=== PATIENT | male | born 1990 | race Caucasian/White ===

== ENCOUNTER 2024-06-10 12:09 | Emergency (ER) | payer OTHER, SELFPAY ==
--- NOTE | ~2024-06-10 | US_ITS ---
CLINICAL HISTORY: liver, new cirrhosis ? US abdomen limited Comparison: None Findings: Hepatic steatosis with focal fatty sparing at the gallbladder fossa. Smooth contour. There is no intrahepatic bile duct dilatation. Tubular structure in the region of the common bile duct measures 4 mm. The gallbladder is normal. There is no sonographic Saleh sign. The main portal vein is antegrade. No ascites. IMPRESSION: Hepatic steatosis. No evidence of cirrhosis. This document has been electronically signed by: Lisa Courtney MD on 06/10/2024 18:38:02
--- NOTE | ~2024-06-10 | XR_ITS ---
EXAMINATION: XR CHEST CLINICAL INFORMATION: hemoptysis COMPARISON: None available. TECHNIQUE: 2 views of the chest were obtained. FINDINGS: The cardiac, hilar, and mediastinal contours are normal. The lungs are clear bilaterally. There is no pneumothorax or pleural effusion. There is no focal osseous or soft tissue abnormality. XR/XR chest 2V IMPRESSION: Normal chest. Electronically signed by: Farhan Madrigal MD 06/10/2024 01:12 PM [facility]
--- NOTE | 2024-06-10 12:51 | ED.GENADULT ---
HPI - General Adult General Chief complaint: General Medical Stated complaint: coughing up blood Time Seen by Provider: 06/10/24 16:28 Source: patient Limitations: no limitations History of Present Illness ED Provider: Rupali Villasenor PA-C HPI narrative: 33-year-old male with a history of fatty liver disease presents with multiple complaints. Patient states he had an isolated episode of hemoptysis 1 month ago. Two weeks ago, he states he had an episode where he vomited bright red blood. 2-3 days ago, the patient noted bright red blood in his stool. Denies coffee-ground emesis, fever, rectal pain, abdominal pain, chest pain, shortness of breath. Related Data Allergies Allergy/AdvReac Type Severity Reaction Status Date / Time No Known Allergies Allergy Verified 06/10/24 12:55 Review of Systems Review of Systems: Yes all other systems are reviewed and are negative Constitutional: Constitutional: Denies fatigue and Denies fever(s) Cardiovascular: Cardiovascular: Denies chest pain and Denies dyspnea Respiratory: Respiratory: Denies chest congestion, Denies cough, Reports hemoptysis, Denies dyspnea and Denies wheezing Gastrointestinal: Gastrointestinal: Reports hematochezia, Denies coffee ground emesis, Denies nausea, Denies vomiting and Denies hematemesis Endocrine: Endocrine: Denies fatigue Allergic/Immunologic: Allergic/Immunologic: Denies wheezing PMF Past Medical History Attestation statement: The following information was validated with the patient. Social History Social History Advance Directives: No Advance Directives Information Provided: No Do you have a plan to hurt others: No Plan Physical Exam ED Vital Signs: Vital Signs - 24 hr 06/10/24 12:52 06/10/24 15:43 06/10/24 18:14 Temperature 97.5 F 97.4 F 98.4 F Pulse Rate 98 99 85 Respiratory Rate 18 18 16 Blood Pressure 155/64 H 144/97 H 145/95 H Pulse Oximetry 99 98 99 Oxygen Delivery Method Room Air Room Air Room Air BMI result Body Mass Index 30.1 Const Other: Alert well-appearing Orientation/consciousness: patient oriented x3 Resp Other: Lungs clear to auscultation Effort & Inspection: normal respiratory effort Cardio Other: Normal peripheral perfusion GI Other: Abdomen is soft, nontender nondistended no guarding Skin Other: Warm dry no rash Neuro General: patient oriented x3, gait normal, no focal motor deficits and CN's II-XI intact bilaterally Psych Other: Cooperative Course Course Course Narrative: This is a rapid medical exam performed by Flip Muniz NP: Additional HPI, ROS, PE not included below will be deferred to primary provider. Patient is a 33-year-old male presenting to the ED with complaint of coughing up blood this morning. Reports bloody mucous draining from nose for the past month. Two weeks ago woke with a spontaneous black eye. The night prior to that, had one episode of vomiting bright red blood. Reports semi-persistent non-productive cough. Two to three days ago had hematochezia. He is not anticoagulated, no known clotting disorders in the family. Split his lip a month ago, still has not healed. Night sweats last two weeks, no unintentional weight loss. Plan: labs, CXR Medical Decision Making Medical Decision Making MDM Narrative: 33-year-old male with a history of fatty liver disease presents with multiple complaints. Patient states he had an isolated episode of hemoptysis 1 month ago. Two weeks ago, he states he had an episode where he vomited bright red blood. 2-3 days ago, the patient noted bright red blood in his stool. Denies coffee-ground emesis, fever, rectal pain, abdominal pain, chest pain, shortness of breath. Problem: Fatty liver History: Per patient I have considered the following differential diagnoses: Upper GI bleed lower GI bleed, PE, TB, lung cancer, pneumonia Plan: The patient is here with 3 isolated issues of bleeding. Screening labs were obtained including a chest x-ray everything is normal. The only abnormality is a slight elevation in his bilirubin, which is likely from his known fatty liver. We will obtain an ultrasound of the right upper quadrant. In regard to his complaint of coughing up blood, we will add on a dimer. To note he has no objective signs symptoms for DVT on exam, he is not tachycardic, he is not short of breath and he is not hypoxic. The patient states he is here seeking assessment due to his 's request. Labs: No leukocytosis, not anemic, no electrolyte abnormality, bilirubin 2, other LFTs minimally elevated, dimer less than 150 Chest x-ray:FINDINGS: The cardiac, hilar, and mediastinal contours are normal. The lungs are clear bilaterally. There is no pneumothorax or pleural effusion. There is no focal osseous or soft tissue abnormality. XR/XR chest 2V IMPRESSION: Normal chest. US RUQ: Findings: Hepatic steatosis with focal fatty sparing at the gallbladder fossa. Smooth contour. There is no intrahepatic bile duct dilatation. Tubular structure in the region of the common bile duct measures 4 mm. The gallbladder is normal. There is no sonographic Saleh sign. The main portal vein is antegrade. No ascites. IMPRESSION: Hepatic steatosis. No evidence of cirrhosis. This document has been electronically signed by: Lisa Courtney MD on 06/10/2024 18:38:02 Lab Data 06/10/24 13:18 06/10/24 13:18 Labs: Lab Results 06/10/24 Range/Units 13:18 WBC 6.8 (4.8-10.8) X10*3/uL RBC 5.37 (4.60-5.80) X10*6/uL Hgb 16.3 (14.0-18.0) g/dl Hct 44.6 (42.0-52.0) % MCV 83.1 (80.0-98.0) fL MCH 30.4 (27.0-33.0) pg MCHC 36.5 H (31.0-36.0) g/dl RDW 11.9 (11.0-16.0) % Plt Count 210 (160-400) X10*3/uL MPV 9.8 (9.4-12.4) fL Immature Gran % (Auto) 0.4 (0.0-0.4) % Neut % (Auto) 61.8 (45-73) % Lymph % (Auto) 29.7 (20-40) % Mcculloch % (Auto) 6.0 (2-11) % Eos % (Auto) 1.2 (0-4) % Baso % (Auto) 0.9 (0-2) % Lymph # (Auto) 2.0 (1.2-4.9) X10*3/uL Mcculloch # (Auto) 0.4 (0.1-1.2) X10*3/uL Eos # (Auto) 0.1 (0.0-0.4) X10*3/uL Baso # (Auto) 0.1 (0.0-0.2) X10*3/uL Abs Immat Gran (auto) 0.03 (0.00-0.03) X10*3/uL Absolute Neuts (auto) 4.2 (2.0-8.3) x10*3/uL Absolute Nucleated RBC 0.000 (0.0-0.012) X10*3/uL Nucleated RBC % (auto) 0.0 (0.0-0.2) /100WBC PT 11.1 (10.9-12.4) SEC INR 1.0 (0.9-1.1) APTT 30.3 (26.0-36.8) SEC D-Dimer High Sensitivty < 150 NG/ML Sodium 140 (135-145) mmol/L Potassium 3.8 (3.3-5.1) mmol/L Chloride 106 (96-108) mmol/L Carbon Dioxide 24 (22-29) mmol/L Anion Gap 14 (12-20) BUN 17 H (9-16) mg/dL Creatinine 1.27 (0.5-1.4) mg/dL Estim Creat Clear Calc 116.5 Estimated GFR > 60 Random Glucose 216 H (60-115) mg/dL Calcium 9.5 (8.4-10.2) mg/dL Total Bilirubin 2.0 H (0.0-1.0) mg/dL Direct Bilirubin 0.4 (0.0-0.5) mg/dL AST 39 H (5-37) U/L ALT 93 H (0-40) U/L Alkaline Phosphatase 51 (39-117) U/L Total Protein 8.1 H (6.5-8.0) g/dL Albumin 4.7 (3.5-5.0) g/dL Discharge Plan Discharge Clinical Impression: Cough Patient Disposition: Home, Self-Care Instructions: Diet for Stomach Ulcers and Gastritis (ED), Gastroesophageal Reflux Disease (ED), Chronic Cough (ED) Additional Instructions: All of your screening labs were normal, you did have some elevation in your liver function tests, which I attribute to your fatty liver disease. You had an ultrasound of the liver and associated structures, there were no acute findings. The chest x-ray was clear. Your viral panel was negative. In regard to the upper and lower GI bleeding you have had, you require endoscopy and colonoscopy as an outpatient. You need to establish primary care, so that you can have a referral to a electronics instructor. Interventions: ED Discharge Assessment Last Done: 06/10/24 19:40 Discharge Date/Time: 06/10/24 19:40 Print Language: Montserratian
[2024-06-10 12:52] VITALS: BP 155/64; PULSE 98; RESP 18; TEMP 36.4; O2SAT 99; BMI 30.1
[2024-06-10 13:27] LABS: Basophils Absolute Auto 0.1 X10*3/uL (0.0-0.2); Basophils Percent Auto 0.9 % (0-2); Eosinophils Absolute Auto 0.1 X10*3/uL (0.0-0.4); Eosinophils Percent Auto 1.2 % (0-4); Hematocrit 44.6 % (42.0-52.0); Hemoglobin 16.3 g/dl (14.0-18.0); Imm Gran Abs Auto 0.03 X10*3/uL (0.00-0.03); Imm Gran Pct Auto 0.4 % (0.0-0.4); Lymphocytes Percent Auto 29.7 % (20-40); MANUAL DIFF FLAG NO; Mean Corpuscular HGB Conc 36.5 g/dl (31.0-36.0); Mean Corpuscular Hemoglobin 30.4 pg (27.0-33.0); Mean Corpuscular Volume 83.1 fL (80.0-98.0); Mean Platelet Volume 9.8 fL (9.4-12.4); Monocytes Absolute Auto 0.4 X10*3/uL (0.1-1.2); Neutrophils Absolute Auto 4.2 x10*3/uL (2.0-8.3); Neutrophils Percent Auto 61.8 % (45-73); Platelet Count 210 X10*3/uL (160-400); Red Blood Count 5.37 X10*6/uL (4.60-5.80); Red Cell Distribution Width 11.9 % (11.0-16.0); White Blood Count 6.8 X10*3/uL (4.8-10.8)
[2024-06-10 13:33] LABS: Prothrombin Time 11.1 SEC (10.9-12.4)
[2024-06-10 13:35] LABS: Partial Thromboplastin Time 30.3 SEC (26.0-36.8)
[2024-06-10 13:53] LABS: Alanine Aminotransferase 93 U/L (0-40); Albumin Level 4.7 g/dL (3.5-5.0); Alkaline Phosphatase 51 U/L (39-117); Anion Gap 14 (12-20); Aspartate Amino Transferase 39 U/L (5-37); Blood Urea Nitrogen 17 mg/dL (9-16); Calcium 9.5 mg/dL (8.4-10.2); Carbon Dioxide 24 mmol/L (22-29); Chloride 106 mmol/L (96-108); Creatinine Clr Calc Pharmacy 116.5; Estimated Glomerular Filt Rate > 60; Glucose Random 216 mg/dL (60-115); Potassium 3.8 mmol/L (3.3-5.1); Sodium 140 mmol/L (135-145); Total Protein 8.1 g/dL (6.5-8.0)
[2024-06-10 15:43] VITALS: BP 144/97; PULSE 99; RESP 18; TEMP 36.3; O2SAT 98
[2024-06-10 16:58] LABS: D Dimer High Sensitivity < 150 NG/ML
[2024-06-10 17:22] LABS: Bilirubin Direct 0.4 mg/dL (0.0-0.5)
[2024-06-10 18:14] VITALS: BP 145/95; PULSE 85; RESP 16; TEMP 36.9; O2SAT 99
[2024-06-10 19:40] VITALS: BP 145/95; PULSE 85; RESP 16; TEMP 36.9; O2SAT 99
--- OUTSIDE RECORDS SUMMARY | 2024-06-10 19:47 | XMS_ITS | Continuity of Care Document ---
Author Name [facility] Organization [facility] Care Team Providers Care Linux Network Systems Administrator Name Role Phone [facility] Unavailable Unavailable Problems Combined list of problems from Department of Defense and Veterans Affairs facilities. It does not include entries that were removed or entered in error. Problem Status Onset Date Problem Type Date of Resolution Comments Source Need For Vaccination Against Influenza Inactive 01/29/2013 Condition DoD Ganglion, right wrist Active Condition DoD Low back pain, unspecified Active Condition DoD Patient Education - Injury Prevention Active Condition DoD visit for: ears / hearing exam Active Condition DoD Need For Prophylactic Measure Inactive Condition DoD Laboratory Studies Inactive Condition Do D visit for: routine eye exam Inactive Condition DoD visit for: services physical Inactive Condition DoD Allergies, Adverse Reactions, Alerts Combined list of allergies from Department of Defense and Veterans Affairs facilities. It does not include entries that were removed or entered in error. Substance Category Reaction Severity Reaction type Status Date Reported Comments Source No Known Allergies Drug allergy (disorder) active 06/28/2021 [facility] [place] Immunizations Combined list of available immunizations from the Department of Defense and Veterans Affairs facilities. Immunization Series Date Given Administered By Site Reaction Lot Number CVX Code Drug Sales Floor Team Member Status Comments Source influenza, injectable, quadrivalent- pf 2021 zzLef t Arm [id number] 150 Unknown complet ed influenza , injectabl e, quadrival ent-pf 06/28/21 Given Ambulat ory Pharmac y influenza, injectable, quadrivalent 2021 [id number] GlaxoSmithKli ne complet ed influenza , injectabl e, quadrival ent 06/28/21 Given Ambulat ory Pharmac y influenza, injectable, quadrivalent, contains preservative 1 2021 [id number] 158 SmithKline (SKB) complet ed influenza , injectabl e, quadrival ent, contains preservat lesia DoD Influenza, injectable, quadrivalent, preservative free 1 2021 GE SEVERINO [id number] 150 Other (OTH) complet ed Influenza , injectabl e, quadrival ent, preservat lesia free DoD SARS-CoV-2 (COVID-19) Ad26 vaccine, rec [id number] complet ed SARS-CoV- 2 (COVID-19 ) Ad26 vaccine, rec 08/18/20 Given Ambulat ory Pharmac y SARS-COV-2 (COVID-19) vaccine, vector non-replicati ng, recombinant spike protein-Ad26, preservative free, 0.5 mL 1 [id number] [address] [facility] (JSN) comple t ed SARS-COV- 2 (COVID-19 ) vaccine, vector non-repli cating, recombina nt spike protein-A d26, preservat lesia free, 0.5 mL DoD influenza, injectable, quadrivalent- pf 2019 [id number] 150 Seqirus complet ed influenza , injectabl e, quadrival ent-pf 03/16/20 Given Ambulat ory Pharmac y Influenza, injectable, quadrivalent, preservative free 1 2019 [id number] 150 Seqirus (SEQ) complet ed Influenza , injectabl e, quadrival ent, preservat lesia free DoD influenza, seasonal, injectable 2017 [id number] 141 Seqirus complet ed influenza , seasonal, injectabl e 03/17/18 Given Ambulat ory Pharmac y Influenza, seasonal, injectable 1 2017 [id number] 141 Seqirus (SEQ) comple t ed Influenza , seasonal, injectabl e DoD influenza, injectable, quadrivalent- pf 2017 [id number] 150 Seqirus complet ed influenza , injectabl e, quadrival ent-pf 03/16/18 Given Ambulat ory Pharmac y Influenza, injectable, quadrivalent, preservative free 1 2017 [id number] 150 Seqirus (SEQ) comple t ed Influenza , injectabl e, quadrival ent, preservat lesia free DoD influenza, injectable, quadrivalent- pf 2016 [id number] [address] GlaxoSmithKli ct complet ed influenza , injectabl e, quadrival ent-pf 01/27/17 Given Ambulat ory Pharmac y Influenza, injectable, quadrivalent, preservative free 1 2016 [id number] 150 SmithClyde (SKB) complet ed Influenza , injectabl e, quadrival ent, preservat lesia free DoD anthrax vaccine 2016 [id number] Emergent Biosolutions complet ed anthrax vaccine 05/07/16 Given Ambulat ory Pharmac y anthrax vaccine 2 2016 [id number] [facility] [place] ([facility] complet ed anthrax vaccine DoD influenza, seasonal, injectable 2015 [id number] 141 Seqirus complet ed influenza , seasonal, injectabl e 03/28/16 Given Ambulat ory Pharmac y Influenza, seasonal, injectable 1 2015 [id number] 141 Seqirus (SEQ) comple t ed Influenza , seasonal, injectabl e DoD influenza, injectable, quadrivalent 2015 [id number] 158 Seqirus complet ed influenza , injectabl e, quadrival ent 03/27/16 Given Ambulat ory Pharmac y influenza, injectable, quadrivalent, contains preservative 1 2015 [id number] 158 Seqirus (SEQ) comple t ed influenza , injectabl e, quadrival ent, contains preservat lesia DoD typhoid Vi capsular polysaccharid e vac 2015 [id number] sanofi pasteur complet ed typhoid Vi capsular polysacch aride vac 07/01/15 Given Ambulat ory Pharmac y anthrax vaccine 2015 [id number] Emergent Biosolutions complet ed anthrax vaccine 07/01/15 Given Ambulat ory Pharmac y vaccinia (smallpox) vaccine 2015 [id number] 75 Sanofi Pasteur Incorporated complet ed vaccinia (smallpox ) vaccine 07/01/15 Given Ambulat ory Pharmac y anthrax vaccine 1 2015 [id number] [employer]gent [employer] [place] (MIP) complet ed anthrax vaccine DoD vaccinia (smallpox) vaccine 1 2015 [id number] 75 (MANUELA) complet ed vaccinia (smallpox ) vaccine DoD typhoid Vi capsular polysaccharid e vaccine 1 2015 [id number] 101 Sanofi Pasteur (PMC) complet ed typhoid Vi capsular polysacch aride vaccine DoD influenza, seasonal, injectable-pf 2014 [id number] 140 CSL Behring complet ed influenza , seasonal, injectabl e-pf 03/06/15 Given Ambulat ory Pharmac y Influenza, seasonal, injectable, preservative free 1 2014 [id number] 140 CSL Bi[employer]. (CSL) complet ed Influenza , seasonal, injectabl e, preservat lesia free DoD influenza, seasonal, injectable-pf 2013 [id number] 140 CSL Behring complet ed influenza , seasonal, injectabl e-pf 03/05/14 Given Ambulat ory Pharmac y hepatitis B adult vaccine 2013 [id number] 43 GlaxoSmithKli ne complet ed hepatitis B adult vaccine 03/05/14 Given Ambulat ory Pharmac y hepatitis B vaccine, adult dosage 3 2013 [id number] 43 SmithKline (SKB) complet ed hepatitis B vaccine, adult dosage DoD Influenza, seasonal, injectable, preservative free 1 2013 [id number] 140 [facility] [employer] (CS) complet ed Influenza , seasonal, injectabl e, preservat lesia free DoD hepatitis A adult vaccine 2013 [id number] 52 GlaxoSmithKli ne complet ed hepatitis A adult vaccine 05/19/13 Given Ambulat ory Pharmac y hepatitis B adult vaccine 2013 [id number] 43 GlaxoSmithKli ne complet ed hepatitis B adult vaccine 05/19/13 Given Ambulat ory Pharmac y hepatitis B vaccine, adult dosage 2 2013 [id number] 43 SmithKline (SKB) complet ed hepatitis B vaccine, adult dosage DoD hepatitis A vaccine, adult dosage 3 2013 [id number] 52 SmithKline (SKB) complet ed hepatitis A vaccine, adult dosage DoD influenza, seasonal, injectable 2012 [id number] 141 sanofi pasteur complet ed influenza , seasonal, injectabl e 01/22/13 Given Ambulat ory Pharmac y Influenza, seasonal, injectable 1 2012 [id number] 141 Sanofi Pasteur (PMC) complet ed Influenza , seasonal, injectabl e DoD hepatitis A-hepatitis B vaccine 2012 [id number] [id number] 104 GlaxoSmithKli ne complet ed hepatitis A-hepatit is B vaccine 11/13/12 Given Ambulat ory Pharmac y meningococcal A,C,Y,W-135 (MCV4P) 2012 [id number] 114 sanofi pasteur complet ed meningoco ccal A,C,Y,W-1 35 (MCV4P) 11/13/12 Given Ambulat ory Pharmac y poliovirus vaccine, inactivated 2012 [id number] 10 sanofi pasteur complet ed polioviru s vaccine, inactivat ed 11/13/12 Given Ambulat ory Pharmac y poliovirus vaccine, inactivated 1 2012 [id number] 10 Sanofi Pasteur (PMC) complet ed polioviru s vaccine, inactivat ed DoD hepatitis A and hepatitis B vaccine 2 2012 [id number] [id number] 104 SmithKline (SKB) complet ed hepatitis A and hepatitis B vaccine DoD meningococcal polysaccharid e (groups A, C, Y and W-135) diphtheria toxoid conjugate vaccine (MCV4P) 1 2012 [id number] 114 Sanofi Pasteur (PMC) complet ed meningoco ccal polysacch aride (groups A, C, Y and W-135) diphtheri a toxoid conjugate vaccine (MCV4P) DoD measles, mumps and rubella virus vaccine 1 2012 UNK 03 Unknown (UNK) Not Given measles, mumps and rubella virus vaccine DoD varicella virus vaccine 1 2012 UNK 21 Unknown (UNK) Not Given varicella virus vaccine DoD influenza, seasonal, injectable 2011 [id number] 141 GlaxoSmithKli ne complet ed influenza , seasonal, injectabl e 01/16/12 Given Ambulat ory Pharmac y hepatitis A adult vaccine 2011 [id number] 4AA 52 GlaxoSmithKli ne complet ed hepatitis A adult vaccine 01/16/12 Given Ambulat ory Pharmac y tetanus, diphtheria, acellular pertu is 2011 [id number] 115 GlaxoSmithKli ne complet ed tetanus, diphtheri a, acellular pertussis 01/16/12 Given Ambulat ory Pharmac y hepatitis A vaccine, adult dosage 1 2011 [id number] 4AA 52 SmithKline (SKB) complet ed hepatitis A vaccine, adult dosage DoD tetanus toxoid, reduced diphtheria toxoid, and acellular pertu is vaccine, adsorbed 1 2011 [id number] 115 SmithKline (SKB) complet ed tetanus toxoid, reduced diphtheri a toxoid, and acellular pertussis vaccine, adsorbed DoD Influenza, seasonal, injectable 1 2011 [id number] [id number] 141 SmithKline (SKB) complet ed Influenza , seasonal, injectabl e DoD Encounters Combined list of: 1) Encounters from Department of Veterans Affairs facilities going backup to the last 18 months, not all VA inpatient encounters are included; 2) Encounters from the Department of Defense facilities going backup to 280 months. Location Location Details Encounter Type Encounter Number Reason For Visit Attending Provider ADM Date DC Date Status Disposition Source [facility] [place]([facility] OUTPATIENT [id number] Notes Entered by: ANA MARIA ANAYA 13 Nov 2012 0956 ------- ------- ------- ------- -- pha/sat /twin/m gc/bri o/visio n LISA LEE 11/13 Released w/o Limitations [facility] [place]([facility]) [facility] [place](IEP Hearing Conservat ion Exam) OUTPATIENT [id number] Notes Entered by: JUNI FRENCH 13 Nov 2012 1700 ------- ------- ------- ------- -- EAR PLUG ISSUE ZAIRE FRENCH 11/13 Released w/o Limitations [facility] [place]([facility] Hearing Conserv ation Exam) [facility] [place] [place] [facility] OUTPATIENT [id number] Notes Entered by: RADHA CHRISTIANSEN 22 Jan 2013 1110 ------- ------- ------- ------- -- ASHLEY ASHLEY 01/22 Released w/o Limitations [facility] [place] Initial [place]) [facility] [place] OUTPATIENT [id number] Notes Entered by: James BUSH 28 Jun 2021 0935 ------- ------- ------- ------- -- RODNEY MOSQUEDA 06/28 Released w/o Limitations [facility] [place]([facility]) [facility] [place] OUTPATIENT [id number] Notes Entered by: TORRES PAPPAS 28 Jun 2021 1017 ------- ------- ------- ------- -- CASSI JACKSON 06/28 Released w/o Limitations [facility] [place]([facility] ) [facility] [place]([facility]) OUTPATIENT [id number] BOBBI HURLEY 06/30 Released w/o Limitations [facility] [place]([facility]) Procedures Combined list of: 1) Procedures from Department of Veterans Affairs facilities going back up to thelast 18 months, not all VA non-surgical procedures are included; 2) All procedures from the Department of Defense facilities. Procedure Procedure Type Code Date Perfomer Comments Sourc e No data available for this section [facility] ADMINISTRATION OF PATIENT-FOCUSED HEALTH RISK ASSESSMENT INSTRUMENT (EG, HEALTH HAZARD APPRAISAL) WITH SCORING AND DOCUMENTATION, PER STANDARDIZED INSTRUMENT [facility] PURE TONE AUDIOMETRY (THRESHOLD), AUTOMATED; AIR ONLY [facility] INFLUENZA VIRUS VACCINE, QUADRIVALENT (IIV4), SPLIT VIRUS, PRESERVATIVE FREE, 0.5 ML DOSAGE, FOR INTRAMUSCULAR USE [facility] INFLUENZA VIRUS VACCINE, TRIVALENT (IIV3), SPLIT VIRUS, 0.5 ML DOSAGE, FOR INTRAMUSCULAR USE [facility] ANTIBODY; HIV-1 AND HIV-2, SINGLE RESULT [facility] Influenza Split Virus Vaccine 0.5mL Dosage Intramuscular ASHLEY SUMMERS Physician Supervised Injection Intramuscular Physician Supervised Injection Intramuscular [id number] ASHLEY SUMMERS Immunization Administration By Injection, One Vaccine Immunization Administration By Injection, One Vaccine 65206 ASHLEY SUMMERS Serum Viral Antibody HIV-1 And HIV-2 (Single Result) Serum Viral Antibody HIV-1 And HIV-2 (Single Result) 97007 LISA LEE [facility] Meningococcal (A, C, Y, W-135) Oligosacch Diphtheria Toxoid Conj Vacc LISA LEE [facility] Vaccines Viral Polio, Inactivated Vaccines Viral Polio, Inactivated 45992 LISA LEE [facility] Hepatitis A And Hepatitis B (Intramuscular Use) Adult Dosage Hepatitis A And Hepatitis B (Intramuscular Use) Adult Dosage 27639 LISA LEE Immunization Administration By Injection, One Vaccine Immunization Administration By Injection, One Vaccine 66246 LISA LEE [facility] Venipuncture Venipuncture 23500 LISA LEE [facility] Screening Test Of Visual Acuity, Quantitative, Bilateral Screening Test Of Visual Acuity, Quantitative, Bilateral 91556 LISA LEE [facility] Health Maint. Unlisted Preventive Medicine Service Health Maint. Unlisted Preventive Medicine Service 91147 LISA LEE [facility] Threshold Audiogram (Pure Tone) Automated Threshold Audiogram (Pure Tone) Automated [id number] CASSI SANABRIA [facility] Preventive Medicine Administration Of Health Risk Questionnaire Patient-Focused Preventive Medicine Administration Of Health Risk Questionnaire Patient-Focused 45485 RODNEY BROWN [facility] Psychometric Emotional / Behavioral A e ment Psychometric Emotional / Behavioral Assessment 79135 RODNEY BROWN [facility] Immunization Administration By Injection, One Vaccine Immunization Administration By Injection, One Vaccine 61020 RODNEY BROWN [facility] Influenza Split Virus Vaccine IM Preserv Free 0.5mL Dosage Quadrivalent Influenza Split Virus Vaccine IM Preserv Free 0.5mL Dosage Quadrivalent 89511 RODNEY BROWN Influenza, Inj., quad., preservative free (FluLaval); Series #: 1; 0.5 mL; IM; Left Arm; Mfg: Other; Lot: [id number]; VIS given (Siddhartha: 11/19/2020). DoD Social History Combined list of available smoking, tobacco, and other social history from Department of Defense and Veterans Affairs facilities. Social History Type Response Date Comment Sour e This section is an empty social history section. [facility] Assessment and Plan Combined list of future care activities from Department of Defense and Veterans Affairs facilities (e.g., assessment and plan notes, appointments, orders, and referrals). Additional future care activities may be listed in the Plan of Care section. Result Assessment and Plan Date Source Assessment and Plan No data available for this section 06/11/2024 Ambulatory Pharmacy Functional Status Combined list of recent functional and cognitive assessments recorded at Department of Defense and Veterans Affairs (VA).VA Functional Chandler Measurement (FIM) Scale: 1 = Total Assistance (Subject = 0% +), 2 = Maximal Assistance (Subject = 25% +), 3 = Moderate Assistance (Subject = 50% +), 4 = Minimal Assistance (Subject = 75% +), 5 = Supervision, 6 = Modified Chandler (Device), 7 = Complete Chandler (Timely, Safely). Assessment Date/Time Source Assessment Type Assessment Skill Assessment Score Assessment Details No data available for this section
== END 2024-06-10 19:40 | disposition home or self-care (01) ==
PROVIDERS: Physician Assistant Medical; Registered Nurse Emergency; Emergency Provider Emergency Medicine
DX: R04.2 Hemoptysis (principal); R10.11 Right upper quadrant pain; R05.9 Cough, unspecified; Z79.899 Other long term (current) drug therapy
CPT/HCPCS: 36415; 71046; 76705; 80053; 82248; 85025; 85379; 85610; 85730; 99283; 99284

== ENCOUNTER → 2024-06-10 12:55 | Outpatient (BNV) | payer SELFPAY | PROVIDERS: Visit Provider Radiology Diagnostic Radiology | DX: R04.2 Hemoptysis (principal) | CPT/HCPCS: 71046; 76705 ==

== ENCOUNTER 2024-10-06 22:15 | Emergency (ER) | payer OTHER, SELFPAY ==
[2024-10-06 22:27] VITALS: BP 121/82; PULSE 86; RESP 18; TEMP 36.9; O2SAT 97; BMI 29.6
[2024-10-07 00:03] VITALS: BP 127/81; PULSE 74; TEMP 36.8; O2SAT 99
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
[2024-10-07] MEDS: Diphth,Pertus(ACell),Tet Adult 0.5 ML SYRINGE IM (01:29)
[2024-10-07] MEDS: Lidocaine HCl 1 % 20 ML VIAL 10 ML INFILTRATI (01:30)
[2024-10-07 02:05] VITALS: BP 120/85; PULSE 71; TEMP 36.9; O2SAT 97
[2024-10-07 02:28] VITALS: BP 120/85; PULSE 71; RESP 17; TEMP 36.9; O2SAT 97
== END 2024-10-07 02:28 | disposition home or self-care (01) ==
PROVIDERS: Emergency Provider Emergency Medicine
DX: S81.812A Laceration without foreign body, left lower leg, initial encounter (principal); W26.8XXA Contact with other sharp object(s), not elsewhere classified, initial encounter; Y93.9 Activity, unspecified; Y92.9 Unspecified place or not applicable; Y99.9 Unspecified external cause status; Z23 Encounter for immunization
CPT/HCPCS: 12002; 90471; 90715; 99283; 99284; J2003

== ENCOUNTER 2025-03-25 11:39 | Outpatient (AMB) | payer OTHER, SELFPAY ==
--- NOTE | 2025-03-25 11:42 | AM.OFFWIN_ITS ---
Intake Vital Signs 03/25/25 11:45 Height 6 ft 5 in BP 140/88 H Blood Pressure Location Lt brachial Position Sitting Pulse 107 H Pulse Source Pulse Oximeter Temp 98.4 F Temp Source Oral Pulse Oximetry (%) 99 Oxygen Delivery Method Room Air Intake Visit Reasons: ep blurred vision high BP headaches dizziness Intake Note: pt presents with High BP, dizziness, headaches and blurred vision, nausea- vomited 4 days ago. Chest becomes tight with eating, yellow colored eyes 2 wks ago lasting 1.5 days. alcohol intake - 2 whiskey drinks over the last month. BP last night 159/103 Allergies poison felecia extract Allergy (Severe, Verified 03/25/25 11:49) swelling, blistering Do you need a note to return to daycare/school/sports/work: No HPI HPI Comments History of Present Illness Details History of Present Illness - The patient is a 34 year old male pres enting with elevated blood pressure, headache, blurred vision, and chest pain. - He reports recent high blood pressure readings at home in the range of high 150s to low 160s over 100s, with a reading of 157/103 mmHg last night. - For the past couple of weeks, he has e xperienced intermittent, sharp headaches on the right hinduism, lasting 5-10 minutes each, which have caused nausea on 2-3 occasions. - He also reports bilateral chest pain, which is higher on the right side and lower and more lateral on the left. - Bilateral blurred vision started yeste rday around lunchtime and has been constant in both eyes. - Although he notes poor baseline vision in his right eye, both eyes are currently blurry. - Pertinent history includes an ER visit about six months ago for abdominal pain and hemoptysis, where he also had high blood pressure that subsequently resolved. - He also had an episode of yellow eyes after Thanksiving following an episode of emesis that contained bright red blood. - He also reports intermittent nosebleed s over the last few months. - The patient uses tobacco-free nicotine pouches and denies smoking or vaping. - He typically drinks two whiskeys at [facility] but started a month-long break from alcohol the week before Thanksgiving. - He is not on any medications and does not have a primary care provider. - He denies fevers, chills, and congesti on. - He denies melena or hematochezia but h as had hematemesis. - He has some dizziness and light headed ness as well. Physical Exam General: Cooperative, healthy appearing, comfortable, no acute distress and well developed Orientation: Patient oriented x3 Limitations: No limitations Head: Normal to inspection Ears: Hearing grossly normal bilaterally Nose: Normal external nose present, but reports of nosebleeds Face and sinus: Normal facial exam Eyes: PERRLA, EOMI. Red reflex is noted. No nystagmus noted, no icterus noted. Neck: Normal visual inspection and Yes full ROM. No carotid bruits noted. Respiratory: Normal respiratory effort and able to speak in complete sentences. Clear to auscultation bilaterally. No w/r/r noted. Cardiovascular: Regular rate and rhythm. Normal S1 and S2. No m/r/g noted. GI: Normal to inspection. Soft to palpation and nontender, non-distended. No guarding or rebound tenderness noted. Skin: No rashes or lesions noted. No jaundice noted Neuro: Patient oriented x3 .CN II-XII intact. Extremities: Normal to inspection. No edema noted. Patient was informed and verbally consented to the use of an ambient scribe for clinic note documentation during this visit. Review of Systems Const All systems reviewed & are unremarkable except as noted in HPI and below Physical Exam Vital Signs: Last Vital Signs Temp 98.4 F 03/25/25 11:45 Pulse 107 H 03/25/25 11:45 BP 140/88 H 03/25/25 11:45 Pulse Ox 99 03/25/25 11:45 Oxygen Delivery Method Room Air 03/25/25 11:45 Assessment & Plan Assessment & Plan (1) Headache: Code(s): R51.9 - Headache, unspecified Qualifiers: Headache chronicity pattern: acute headache Headache type: unspecified Intractability: intractable Qualified Code(s): R51.9 - Headache, unspecified (2) High blood pressure: Code(s): I10 - Essential (primary) hypertension Qualifiers: Hypertension type: primary hypertension Qualified Code(s): I10 - Essential (primary) hypertension (3) Blurry vision, bilateral: Code(s): H53.8 - Other visual disturbances Plan Most likely new diagnosis of HTN, uncontrolled with concern for the new onset of BARBOSA and blurry vision plan - pt will need a work up in the ER - will call in an expect to [facility] - vitals are stable here in the clinic - will call an ambulance due to the blurred vision - will make an appt for new pt visit - needs f/u after the ER visit - pt is agreeable to the plan Coding Level of Care Code Est Pt Level 3 (18831) Diagnoses Acute intractable headache, unspecified headache type R51.9 Headache chronicity pattern: acute headache Headache type: unspecified Intractability: intractable Primary hypertension I10 Hypertension type: primary hypertension Blurry vision, bilateral H53.8
[2025-03-25 11:45] VITALS: BP 140/88; PULSE 107; TEMP 36.9; O2SAT 99
== END 2025-03-25 13:29 | disposition home or self-care (01) ==
PROVIDERS: Visit Provider Physician Assistant Medical
DX: R51.9 Headache, unspecified (principal); I10 Essential (primary) hypertension; H53.8 Other visual disturbances

== ENCOUNTER 2025-03-25 12:51 | Emergency (ER) | payer OTHER, SELFPAY ==
[2025-03-25 12:54] VITALS: BP 147/104; PULSE 105; O2SAT 98
[2025-03-25 13:07] VITALS: BP 164/104; PULSE 105; RESP 20; TEMP 37.3; O2SAT 96; BMI 30.2
--- NOTE | 2025-03-25 14:15 | ED_ITS ---
HPI - General Adult General Chief complaint: General Medical Stated complaint: BLURRED VISION X24H,R SIDED HABP 181/105 PER EMS Time Seen by Provider: 03/25/25 13:06 Source: patient Mode of arrival: ambulatory Limitations: no limitations History of Present Illness ED Provider: HPI narrative: 34-year-old male, currently serving in the [employer], reports to be healthy, annual physical but you states during his last physical his blood pressure was elevated 140s systolic, has been noting in his blood pressure has been elevated, he reported nonspecific blurry vision for the past few days associated with high blood pressures, stabbing sharp headaches, prefrontal headaches, no sudden onset of worse headaches associated nausea vomiting weakness in upper or lower extremities, reports episodes of dizziness when standing up and moving fast. Nonsmoker nondrinker no drug use. Related Data Previous Rx's ?Medication ?Instructions ?Recorded hydrochlorothiazide 12.5 mg capsule 12.5 mg PO DAILY 6 0 days #60 caps 03/25/25 Allergies Allergy/AdvReac Type Severity Reaction Status Date / Time poison felecia extract Allergy Severe swelling, Verified 03/25/25 13:10 blistering Review of Systems Constitutional: Constitutional: Reports as per HPI [facility] Social History Social History Unable to assess alcohol history related to: Unknown Use of substances other than those prescribed or required for medical reasons: Unknown Advance Directives: No Advance Directives Information Provided: Yes Physical Exam ED Exam Exam: ?General: ??looks age appropriate ?PERRLA, EOMI, MMM, Neck: Supple, no LAD ?CV: RRR, no obvious murmurs appreciated ?Resp: ?No wheezing rales rhonchi no stridor moving air well Abd: ?Bowel sounds are present, no tenderness no rebound no rigidity MSK: FROM, strength 5/5 all extremities Skin: Warm, dry, intact, ?Neuro: ?Alert and oriented x3, moving upper and lower extremities symmetrically, no obvious facial asymmetry noted, cranial nerves 2-12 intact, no dysmetria upper or lower extremities no nystagmus horizontal or vertical Vital Signs: Vital Signs - 24 hr 03/25/25 13:07 Temperature 99.1 F Pulse Rate 105 H Respiratory Rate 20 Blood Pressure 164/104 H Pulse Oximetry 96 Oxygen Delivery Method Room Air BMI result Body Mass Index 30.2 Medical Decision Making Medical Decision Making [facility] Narrative: 2:36 PM 03/25/2025 (Dr. Santos Street): ECG without changes to suspect underlying ACS, his neurologic deficits, no evidence for cerebellar stroke or nystagmus No neurologic deficits to suspect a stroke We will check blood work to evaluate for any cardiac ischemia Cardiac enzymes, blood work for end-organ damage such as RYAN Differential Diagnosis Differential Diagnoses: The differential diagnosis associated with the presentation includes (Asymptomatic hypotension, ACS, stroke, TIA, tension headache, subarachnoid hemorrhage) Admission/Observation Consideration of admission/observation: Escalation of care including admission/observation considered Lab Data MDM Lab Attestation statement: I reviewed the patient's lab results. Independent Interpretation I performed an independent interpretation of an: EKG (102 beats per minute otherwise normal ECG without dysrhythmia, AV kim blocks or ST-T changes to suspect underlying ACS, my independent interpretation) Tests considered The following testing was considered but not selected: CT brain Chronic Conditions Patient?s care impacted by: Hypertension Discharge Plan Discharge Clinical Impression: Hypertension Qualifiers: Hypertension type: primary hypertension Qualified Code(s): I10 - Essential (primary) hypertension Prescriptions: New hydrochlorothiazide 12.5 mg capsule 12.5 mg PO DAILY 60 Days Qty: 60 0RF Print Language: Sri L[place]an
[2025-03-25 14:29] LABS: MANUAL DIFF FLAG NO
[2025-03-25 14:32] LABS: Hematocrit 44.0 % (42.0-52.0); Hemoglobin 16.3 g/dl (14.0-18.0); Imm Gran Abs Auto 0.03 X10*3/uL (0.00-0.03); Imm Gran Pct Auto 0.5 % (0.0-0.4); Lymphocytes Absolute Auto 1.7 X10*3/uL (1.2-4.9); Mean Corpuscular HGB Conc 37.0 g/dl (31.0-36.0); Mean Corpuscular Hemoglobin 30.2 pg (27.0-33.0); Mean Corpuscular Volume 81.6 fL (80.0-98.0); NRBC Abs Auto 0.000 X10*3/uL (0.0-0.012); NRBC Pct Auto 0.0 /100WBC (0.0-0.2); Platelet Count 223 X10*3/uL (160-400); Red Blood Count 5.39 X10*6/uL (4.60-5.80); White Blood Count 6.4 X10*3/uL (4.8-10.8)
[2025-03-25 14:33] VITALS: BP 135/97
[2025-03-25 14:49] LABS: Alanine Aminotransferase 81 U/L (0-40); Albumin Level 5.0 g/dL (3.5-5.0); Alkaline Phosphatase 44 U/L (39-117); Anion Gap 11 (12-20); Aspartate Amino Transferase 35 U/L (5-37); Blood Urea Nitrogen 17 mg/dL (9-16); Calcium 9.6 mg/dL (8.4-10.2); Carbon Dioxide 30 mmol/L (22-29); Chloride 101 mmol/L (96-108); Creatinine Clr Calc Pharmacy 151.3; Estimated Glomerular Filt Rate > 60; Potassium 4.4 mmol/L (3.3-5.1); Sodium 138 mmol/L (135-145); Total Protein 7.6 g/dL (6.5-8.0)
[2025-03-25 15:31] VITALS: BP 135/97; PULSE 89; RESP 16; TEMP 37.2; O2SAT 98
== END 2025-03-25 15:33 | disposition home or self-care (01) ==
PROVIDERS: Emergency Provider Emergency Medicine
DX: I10 Essential (primary) hypertension (principal)
CPT/HCPCS: 36415; 80053; 85025; 99212; 99283; 99284